=== PATIENT | male | born 2000 | race Caucasian/White ===

== ENCOUNTER 2021-02-17 10:23 | Emergency (ER) | payer MEDICAID, SELFPAY ==
[2021-02-17 10:40] VITALS: BP 113/62; PULSE 52; RESP 16; TEMP 36.6; O2SAT 99; BMI 26.6
--- NOTE | 2021-02-17 10:47 | ED.EAR ---
HPI - Ear Problem General Chief complaint: Ear Problems Stated complaint: ear pain Time Seen by Provider: 02/17/21 10:46 Source: patient Mode of arrival: ambulatory History of Present Illness HPI Narrative: 20-year-old male with a past medical history of a past medical history of ruptured TM presenting to the ED complaining of ruptured right ear drum x2 days with bleeding s/p cleaning ear with Q-tip. Believes he went to deep. Reports associated pain and decreased hearing. Denies fever, chills, pus drainage, sore throat MD Complaint: ear pain and decreased hearing Location: right ear Related Data Previous Rx's Medication Instructions Recorded amoxicillin-pot clavulanate 1 tab PO Q12H 7 Days #14 tab 02/17/21 [Augmentin] Allergies Allergy/AdvReac Type Severity Reaction Status Date / Time No Known Allergies Allergy Unverified 04/16/20 16:48 [No Known Allergies*] Review of Systems Review of Systems: Constitutional: No Fever, No Chills ENT/Mouth: + Ear Pain, +Bleeding from ear, +Decreased hearing, No Nasal Congestion, No sore throat, No Swallowing Difficulty Cardiovascular: No Chest Pain, No SOB Respiratory: No Cough, No Sputum Gastrointestinal: No Nausea, No Vomiting Skin: No Skin Lesions, No rash PMFSH Past Medical History Attestation statement: The following information was validated with the patient. Medical History (Updated 02/17/21 @ 10:51 by DANIEL Grajeda) Ruptured eardrum Surgical History (Updated 02/17/21 @ 10:43 by Candy Weber) Hx of tonsillectomy Physical Exam Vital Signs: Vital Signs: Last Vital Signs Temp 97.9 F 02/17/21 10:40 Pulse 52 02/17/21 10:40 Resp 16 02/17/21 10:40 BP 113/62 02/17/21 10:40 Pulse Ox 99 02/17/21 10:40 Body Mass Index 26.6 Const: General: cooperative, healthy appearing and no acute distress Orientation/consciousness: patient oriented x3 Limitations: no limitations HENMT: Other: + right ear canal with dry blood, swollen Head: Yes normal to inspection Ears: TM normal on the left, mastoids normal, no periauricular adenopathy and TM abnormal erythematous and with loss of landmarks on the right General nose exam: Normal external nose present Face and sinus: Yes normal facial exam Mouth: Normal oral and palatal mucosa present Throat: Yes posterior oropharynx normal, Yes tonsils normal, Yes uvula midline and No uvular edema Eyes: General: appearance normal, both eyes and all related structures EOM: EOMs intact bilaterally Neck: Neck: Yes normal visual inspection and Yes no lymphadenopathy Resp: Effort & Inspection: normal respiratory effort and no respiratory distress Cardio: Rate: regular rate GI: Inspection: Yes normal to inspection Skin: Rashes: no rashes Wounds: no wounds Neuro: General: patient oriented x3 Gait exam (Neuro): Normal gait present Extrem: General: Yes normal to inspection MDM - Ear MDM Narrative Medical decision making narrative: 20-year-old male with a past medical history of a past medical history of ruptured TM presenting to the ED complaining of ruptured right ear drum x2 days with bleeding s/p cleaning ear with Q-tip. On exam vital signs stable, exam consistent with otitis media with ruptured TM, dry blood in right ear canal. Mastoids WNL Medical Records Attestation: I reviewed the patient's medical records. Discharge Plan Discharge Clinical Impression: Otitis media Patient Disposition: Elopement Instructions: Ear Infection (ED) Additional Instructions: You have an inner ear infection, Augmentin as antibiotic, please take as prescribed It is important for you to follow-up with her primary care doctor, you may also follow-up with an Ear Nose Throat specialist as needed If her symptoms persist or worsen, you have continued drainage from a here, continued hearing loss, develops fever please return to the ED Prescriptions: New amoxicillin-pot clavulanate [Augmentin] 875-125 mg tablet 1 tab PO Q12H 7 Days Qty: 14 RF: 0 Referrals: Physician,Unknown [Primary Care Provider] - 3 days David Boone [Physician] - 1 week (as needed)
== END 2021-02-17 11:16 | disposition left against medical advice (07) ==
LOC: HO.ED 11:15
PROVIDERS: Emergency Provider Emergency Medicine
DX: H66.91 Otitis media, unspecified, right ear (principal)
CPT/HCPCS: 99283

== ENCOUNTER 2021-05-04 23:02 | Emergency (ER) | payer MEDICAID, SELFPAY ==
[2021-05-04 23:41] VITALS: BP 123/58; PULSE 80; RESP 14; TEMP 36.8; O2SAT 99; BMI 26.6
--- NOTE | 2021-05-05 01:54 | ED.GENADULT ---
HPI - General Adult General Chief complaint: Extremity Injury, Lower Stated complaint: toe inj Time Seen by Provider: 05/05/21 01:42 Source: patient Mode of arrival: ambulatory Limitations: no limitations History of Present Illness HPI narrative: 20-year-old male who presents emergency department for evaluation of a laceration to his left 5th toe. He states that he was getting out of the shower when he caught his toe on a lip causing him to tear the skin over his toe. States that he blood profusely initially but with an was able to control the bleeding with pressure. The patient also states that he was working outside approximately 4-5 days ago and now has a rash on his arms and legs, the rash is pruritic. He has been taking Benadryl with some improvement of the pruritus but no improvement of the rash. He denied fever, chills, chest pain, shortness of breath, nausea vomiting, abdominal pain. He states his tetanus status is up today. Related Data Previous Rx's Medication Instructions Recorded amoxicillin 875 mg-potassium 1 tab PO Q12H 7 Days #14 tab 02/17/21 clavulanate 125 mg tablet (Augmentin) prednisone 20 mg tablet 40 mg PO DAILY 7 Days #14 tab 05/05/21 Allergies Allergy/AdvReac Type Severity Reaction Status Date / Time No Known Allergies Allergy Unverified 04/16/20 16:48 [No Known Allergies*] Review of Systems Review of Systems: Yes all other systems are reviewed and are negative [facility] Past Medical History [facility] Narrative: Past medical history: None. Past surgical history: None. Social history: He denies tobacco, alcohol and drug use. Medical History (Updated 05/05/21 @ 02:10 by Darin Lemus MD) Ruptured eardrum Surgical History (Updated 02/17/21 @ 10:43 by Candy Weber) Hx of tonsillectomy Social History Social History Advance Directives: No Advance Directives Information Provided: Yes Physical Exam Vital Signs: Vital Signs: Last Vital Signs Temp 98.2 F 05/04/21 23:41 Pulse 80 05/04/21 23:41 Resp 14 05/04/21 23:41 BP 123/58 L 05/04/21 23:41 Pulse Ox 99 05/04/21 23:41 Body Mass Index 26.6 Const: Other: Very pleasant and cooperative male patient, does not appear to be in distress, answers all questions appropriately HENMT: Head: Yes normal to inspection General nose exam: Normal external nose present Face and sinus: Yes normal facial exam Eyes: General: appearance normal, both eyes and all related structures Resp: Effort & Inspection: normal respiratory effort Skin: Other: Diffuse rash consistent with poison carlos Extrem: Other: Patient has a 1.0 cm flap-like laceration over the 5th toe of the left foot, there is no significant bleeding, the skin of the flap laceration is very thin, extremities neurovascular intact Course Course Course Narrative: 20-year-old male who presents emergency department for evaluation of flap laceration to his left 5th toe and rash on his upper and lower extremities consistent with poison carlos. Patient's laceration was repaired with skin glue. The patient was started on prednisone 40 mg once a day for 7 days for is poison carlos, was given a dose here in the emergency department. Home. Procedures Laceration Left 5th toe laceration: Site: lower extremity (Left 5th toe) Side (If applicable): left Size (cm): 1.0 Description: flap (Thin layer) Depth: simple, single layer Pre-repair: wound explored Skin layer closed with: other (Skin glue) Discharge Plan Discharge Clinical Impression: Glued skin wound, Allergic dermatitis due to poison carlos Laceration of toe Qualifiers: Encounter type: initial encounter Toe: lesser toe Damage to nail status: without damage Foreign body presence: without foreign body Laterality: left Qualified Code(s): S91.115A - Laceration without foreign body of left lesser toe(s) without damage to nail, initial encounter Patient Disposition: Home, Self-Care Prescriptions: New prednisone 20 mg tablet 40 mg PO DAILY 7 Days Qty: 14 RF: 0 No Action amoxicillin-pot clavulanate [Augmentin] 875-125 mg tablet 1 tab PO Q12H 7 Days Qty: 14 RF: 0
[2021-05-05] MEDS: predniSONE 20 MG TABLET 40 MG PO (02:03)
== END 2021-05-05 02:18 | disposition home or self-care (01) ==
PROVIDERS: Emergency Provider Emergency Medicine Emergency Medical Services
DX: S91.115A Laceration without foreign body of left lesser toe(s) without damage to nail, initial encounter (principal); M79.672 Pain in left foot; W26.9XXA Contact with unspecified sharp object(s), initial encounter; Y93.E1 Activity, personal bathing and showering; Y92.002 Bathroom of unspecified non-institutional (private) residence as the place of occurrence of the external cause; Y99.9 Unspecified external cause status; Z79.899 Other long term (current) drug therapy
CPT/HCPCS: 12001; 99283

== ENCOUNTER 2021-06-09 08:43 | Emergency (ER) | payer OTHER, MEDICAID, SELFPAY ==
[2021-06-09 09:00] VITALS: BP 124/68; PULSE 78; RESP 16; TEMP 36.9; O2SAT 100; BMI 26.6
[2021-06-09 09:09] VITALS: BP 160/73; PULSE 76; RESP 14; TEMP 36.2; O2SAT 99
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
== END 2021-06-09 10:00 | disposition home or self-care (01) ==
PROVIDERS: Emergency Provider Emergency Medicine; PCP Nurse Practitioner Family
DX: S13.4XXA Sprain of ligaments of cervical spine, initial encounter (principal); M79.10 Myalgia, unspecified site; V43.52XA Car driver injured in collision with other type car in traffic accident, initial encounter; Y93.89 Activity, other specified; Y92.410 Unspecified street and highway as the place of occurrence of the external cause; Y99.9 Unspecified external cause status
CPT/HCPCS: 99283; 99285

== ENCOUNTER 2021-06-13 09:15 | Emergency (ER) | payer MEDICAID, SELFPAY ==
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
[2021-06-13 09:21] VITALS: BP 147/78; PULSE 74; RESP 22; TEMP 37.2; O2SAT 99
[2021-06-13 09:33] VITALS: BP 147/78; PULSE 74; RESP 18; TEMP 37.2; O2SAT 98; BMI 25.8
[2021-06-13] MEDS: Acetaminophen 325 MG TABLET 975 MG PO (09:54)
[2021-06-13 10:40] VITALS: RESP 18
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
== END 2021-06-13 11:32 | disposition home or self-care (01) ==
PROVIDERS: Emergency Provider Emergency Medicine; PCP Nurse Practitioner Family
DX: S39.012A Strain of muscle, fascia and tendon of lower back, initial encounter (principal); S46.912A Strain of unspecified muscle, fascia and tendon at shoulder and upper arm level, left arm, initial encounter; M54.6 Pain in thoracic spine; V43.52XA Car driver injured in collision with other type car in traffic accident, initial encounter; Y93.9 Activity, unspecified; Y92.411 Interstate highway as the place of occurrence of the external cause; Y99.9 Unspecified external cause status
CPT/HCPCS: 72072; 72100; 73060; 99283

== ENCOUNTER 2021-06-23 14:57 | Emergency (ER) | payer OTHER, SELFPAY ==
[2021-06-23 15:19] VITALS: BP 131/79; PULSE 66; RESP 18; TEMP 37; O2SAT 99; BMI 41.0
[2021-06-23] MEDS: Lidocaine HCl 1 % MPF 5 ML VIAL SUBCUT ×2 (16:23→16:24)
[2021-06-23] MEDS: cephALEXin 500 MG CAPSULE PO (16:23)
[2021-06-23] MEDS: Diphth,Pertus(ACell),Tet Adult 0.5 ML SYRINGE IM (16:24)
--- NOTE | 2021-06-23 17:02 | ED_ITS ---
HPI - Wound/Laceration General Chief Complaint: Wound/Laceration Stated Complaint: thumb lac Time Seen by Provider: 06/23/21 15:54 Source: patient Mode of arrival: ambulatory Limitations: no limitations History of Present Illness HPI narrative: 20-year-old male presenting to the ED with complaints of a laceration to his right hand that occurred at work prior to arrival while he was sharpening the night. He denies any bony tenderness any thoughts of foreign body any paresthesias or any other symptoms complaints or concerns at this time. Onset (ago): minute(s) (Prior to arrival) Extremity Location: right: hand (thumb ) Place: work Patient tetanus UTD: No Context: accidental Associated symptoms: pain Treatments prior to arrival: bandage Related Data Previous Rx's Medication Instructions Recorded amoxicillin 875 mg-potassium 1 tab PO Q12H 7 Days #14 tab 02/17/21 clavulanate 125 mg tablet (Augmentin) prednisone 20 mg tablet 40 mg PO DAILY 7 Days #14 tab 05/05/21 cyclobenzaprine 10 mg tablet 10 mg PO TID #10 tab 06/09/21 naproxen 500 mg tablet (Naprosyn) 500 mg PO BID #20 tab 06/09/21 diazepam 10 mg tablet (Valium) 10 mg PO TID PRN #14 tab 06/13/21 ibuprofen 800 mg tablet 800 mg PO Q8H PRN #14 tab 06/13/21 oxycodone-acetaminophen 5 mg-325 1 tab PO Q6H PRN #10 tab 06/13/21 mg tablet (Percocet) acetaminophen 500 mg capsule 1,000 mg PO QID PRN #14 cap 06/23/21 cephalexin 500 mg capsule 500 mg PO Q6H 10 Days #40 cap 06/23/21 Allergies Allergy/AdvReac Type Severity Reaction Status Date / Time No Known Allergies Allergy Verified 06/13/21 09:36 [No Known Allergies*] Review of Systems Review of Systems: Constitutional : No Fever, No Chills, Cardiovascular : No Chest Pain, No SOB Respiratory : No Dyspnea Gastrointestinal : No abdominal pain Musculoskeletal : No Joint Swelling Skin : positive skin laceration, No Foreign bodies, No rash, No surrounding erythema Neuro : No Weakness, No Numbness/tingling Psych : No SI/HI/thoughts of self injury Yes all other systems are reviewed and are negative PMFSH Past Medical History Attestation statement: The following information was validated with the patient. Medical History Ruptured eardrum Surgical History Hx of tonsillectomy Social History Social History Advance Directives: No Advance Directives Information Provided: No Physical Exam Vital Signs: Vital Signs: Last Vital Signs Temp 98.6 F 06/23/21 15:19 Pulse 66 06/23/21 15:19 Resp 18 06/23/21 15:19 BP 131/79 06/23/21 15:19 Pulse Ox 99 06/23/21 15:19 Body Mass Index 41.0 vital signs have been reviewed as normal and appeared to be correct. Blood pressure normal Heart rate normal. Respiration rate normal. Temperature normal. Oxygen saturation normal. Appearance: Alert. Oriented X3. No acute distress. Head: Normal external exam. Normocephalic. Atraumatic. Eyes: PERRLA. EOMI. Conjunctiva and sclera normal. Eyelids normal. ENT: Pharynx normal. Uvula midline. Moist mucous membranes. Neck: Normal inspection. Neck supple. FROM. CVS: Normal heart rate and rhythm. Respiratory: No respiratory distress. Painless inspiration. Skin: Skin warm and dry. Normal skin color. Normal skin turgor. No rashes/lesions noted. Extremities: To right hand some at the pad of the thumb patient has the 1 cm intermediate laceration no active bleeding or foreign bodies or bony tenderness or obvious ligamentous or tendon injury. Patient has full range of motion of the right thumb. Otherwise all Extremities exhibit normal range of motion and nontender. Neuro: Oriented X 3. No motor deficit. No sensory deficit. Reflexes normal. Normal steady gait. No focal neuro deficits noted. Vascular: + radial pulses/+ 2 distal pedal pulses/+2 dorsalis pedis b/l. Normal cap refill. No cyanosis noted to upper extremity nails and lower extremity toes nails. Course Course Course Narrative: 20-year-old male presenting to the ED with complaints of a laceration to his right hand that occurred at work prior to arrival while he was sharpening the night. He denies any bony tenderness any thoughts of foreign body any paresthesias or any other symptoms complaints or concerns at this time. Patient now status post laceration repair with 5 sutures placed. Patient tolerated procedure well. Patient's tetanus was updated as he reported he was not up-to-date. Will DC home with Keflex and instructions to return if any new or worsening symptoms to follow up with [facility] and to return in 10 days for suture removal Patient understands agrees with this plan. MDM - Wound/Laceration Medical Records Attestation: I reviewed the patient's medical records. Procedures Laceration Laceration 1: Site: hand (thumb ) Side (If applicable): right Size (cm): 1 Description: linear Depth: simple, single layer Local Anesthetic: lidocaine 1% Amount of anesthesia used (mL): 6 Pre-repair: wound explored, irrigated extensively and deep structures intact Skin layer closed with: nylon Size (cm): 5-0 Number of sutures: 5 Technique: simple, interrupted Discharge Plan Discharge Clinical Impression: Laceration, Work related injury Patient Disposition: Home, Self-Care Instructions: Finger Laceration (ED), Return to Work Instructions (ED) Prescriptions: New cephalexin 500 mg capsule 500 mg PO Q6H 10 Days Qty: 40 RF: 0 acetaminophen 500 mg capsule 1,000 mg PO QID PRN (Reason: fever or pain) Qty: 14 RF: 0 No Action amoxicillin-pot clavulanate [Augmentin] 875-125 mg tablet 1 tab PO Q12H 7 Days Qty: 14 RF: 0 cyclobenzaprine 10 mg tablet 10 mg PO TID Qty: 10 RF: 0 naproxen [Naprosyn] 500 mg tablet 500 mg PO BID Qty: 20 RF: 0 prednisone 20 mg tablet 40 mg PO DAILY 7 Days Qty: 14 RF: 0 ibuprofen 800 mg tablet 800 mg PO Q8H PRN (Reason: pain) Qty: 14 RF: 0 oxycodone-acetaminophen [Percocet] 5-325 mg tablet 1 tab PO Q6H PRN (Reason: pain) Qty: 10 RF: 0 diazepam [Valium] 10 mg tablet 10 mg PO TID PRN (Reason: muscle spasm) Qty: 14 RF: 0 Referrals: [facility] [Provider Group] - 2 days Hoda Friedman NP [Primary Care Provider] - 2 days Ayesha Hendrix PA [Emergency Midlevel Provider] - 10 days (For suture removal) Stand Alone Forms: Work/School Release Print Language: Croatian
== END 2021-06-23 17:42 | disposition home or self-care (01) ==
PROVIDERS: Emergency Provider Emergency Medicine; PCP Nurse Practitioner Family
DX: S61.011A Laceration without foreign body of right thumb without damage to nail, initial encounter (principal); S60.511A Abrasion of right hand, initial encounter; W26.9XXA Contact with unspecified sharp object(s), initial encounter; Y93.9 Activity, unspecified; Y92.9 Unspecified place or not applicable; Y99.0 Civilian activity done for income or pay; Z79.899 Other long term (current) drug therapy
CPT/HCPCS: 12001; 90471; 90715; 99283; 99284

== ENCOUNTER 2021-06-27 09:24 | Emergency (ER) | payer OTHER, MEDICAID, SELFPAY | END 2021-06-27 09:40 | disposition left against medical advice (07) | PROVIDERS: Emergency Provider Emergency Medicine; PCP Nurse Practitioner Family | DX: Z04.2 Encounter for examination and observation following work accident (principal); Z48.02 Encounter for removal of sutures ==

== ENCOUNTER 2021-06-27 21:28 | Emergency (ER) | payer OTHER, MEDICAID, SELFPAY ==
[2021-06-27 22:30] VITALS: BP 130/64; PULSE 77; RESP 18; TEMP 37; O2SAT 98; BMI 25.8
--- NOTE | 2021-06-27 23:02 | ED.GENADULT ---
HPI - General Adult General Chief complaint: General Medical Stated complaint: removal of stitches Source: patient Mode of arrival: ambulatory Limitations: no limitations History of Present Illness HPI narrative: 20-year-old male presents for suture removal to the right thumb. Onset (ago): day(s) (5) Related Data Previous Rx's Medication Instructions Recorded amoxicillin 875 mg-potassium 1 tab PO Q12H 7 Days #14 tab 02/17/21 clavulanate 125 mg tablet (Augmentin) prednisone 20 mg tablet 40 mg PO DAILY 7 Days #14 tab 05/05/21 cyclobenzaprine 10 mg tablet 10 mg PO TID #10 tab 06/09/21 naproxen 500 mg tablet (Naprosyn) 500 mg PO BID #20 tab 06/09/21 diazepam 10 mg tablet (Valium) 10 mg PO TID PRN #14 tab 06/13/21 ibuprofen 800 mg tablet 800 mg PO Q8H PRN #14 tab 06/13/21 oxycodone-acetaminophen 5 mg-325 1 tab PO Q6H PRN #10 tab 06/13/21 mg tablet (Percocet) acetaminophen 500 mg capsule 1,000 mg PO QID PRN #14 cap 06/23/21 cephalexin 500 mg capsule 500 mg PO Q6H 10 Days #40 cap 06/23/21 Allergies Allergy/AdvReac Type Severity Reaction Status Date / Time No Known Allergies Allergy Verified 06/27/21 22:30 [No Known Allergies*] Review of Systems Review of Systems: Constitutional: No Fever, No Chills ENT/Mouth: No Ear Pain, No Hoarseness, No sore throat Eyes: No Eye Pain, No Swelling, No Redness, No Foreign Body Cardiovascular: No Chest Pain, No SOB Respiratory: No Cough, No Dyspnea Gastrointestinal: No Nausea, No Vomiting, No Diarrhea, No abdominal Pain Genitourinary: No Dysuria, No Hematuria Musculoskeletal: no joint pain, No Myalgias, No Joint Swelling Skin: positive thumb laceration, No rash Neuro: No Weakness, No Numbness, No Paresthesias, No Loss of Consciousness, No Dizziness, No Headache Psych: No Anxiety/Panic, No Depression Heme/Lymph: no easy bruising, no Lymphadenopathy Endocrine: No Polyuria, No Polydipsia Yes all other systems are reviewed and are negative [facility] Past Medical History Attestation statement: The following information was validated with the patient. Source: old records reviewed Medical History Ruptured eardrum Surgical History Hx of tonsillectomy Social History Social History Advance Directives: No Physical Exam Vital Signs: Vital Signs: Last Vital Signs Temp 98.6 F 06/27/21 22:30 Pulse 77 06/27/21 22:30 Resp 18 06/27/21 22:30 BP 130/64 06/27/21 22:30 Pulse Ox 98 06/27/21 22:30 Body Mass Index 25.8 Appearance: Alert. Oriented X3. No acute distress. Eyes: Pupils equal, round and reactive to light. ENT: Pharynx normal. Neck: Normal inspection. Neck supple. CVS: Normal heart rate and rhythm. Pulses normal. Respiratory: No respiratory distress. Breath sounds normal. Abdomen: Soft and nontender. Skin: Skin warm and dry. Normal skin color. Normal skin turgor. thumb laceration well approximated, healing. No indication of infection or purulent drainage. Sutures removed without difficulty. Extremities: No lower extremity edema. Gait well-balanced well coordinated. Neuro: No motor deficit. No sensory deficit. Course Course Course Narrative: 20-year-old male presents for suture removal. Five sutures removed from that of his thumb on the left side. No purulent drainage, well approximated, no indication of infection. Full range of motion and brisk capillary refill noted. Patient verbalized understanding of and agrees plan of care discharge home. Discharge Plan Discharge Clinical Impression: Visit for suture removal Patient Disposition: Home, Self-Care Instructions: Stitches Removal (ED) Additional Instructions: please follow-up with [facility] if needed. Thank you for choosing this emergency department for evaluation. Please follow-up with primary care physician as needed. Return to the emergency department for any new, concerning, or worsening symptoms. Prescriptions: No Action amoxicillin-pot clavulanate [Augmentin] 875-125 mg tablet 1 tab PO Q12H 7 Days Qty: 14 RF: 0 cyclobenzaprine 10 mg tablet 10 mg PO TID Qty: 10 RF: 0 naproxen [Naprosyn] 500 mg tablet 500 mg PO BID Qty: 20 RF: 0 cephalexin 500 mg capsule 500 mg PO Q6H 10 Days Qty: 40 RF: 0 acetaminophen 500 mg capsule 1,000 mg PO QID PRN (Reason: fever or pain) Qty: 14 RF: 0 prednisone 20 mg tablet 40 mg PO DAILY 7 Days Qty: 14 RF: 0 ibuprofen 800 mg tablet 800 mg PO Q8H PRN (Reason: pain) Qty: 14 RF: 0 oxycodone-acetaminophen [Percocet] 5-325 mg tablet 1 tab PO Q6H PRN (Reason: pain) Qty: 10 RF: 0 diazepam [Valium] 10 mg tablet 10 mg PO TID PRN (Reason: muscle spasm) Qty: 14 RF: 0 Interventions: ED Discharge Assessment Last Done: 06/27/21 23:32 Discharge Date/Time: 06/27/21 23:17
== END 2021-06-27 23:17 | disposition home or self-care (01) ==
PROVIDERS: Emergency Provider Nurse Practitioner Family; PCP Nurse Practitioner Family
DX: Z04.2 Encounter for examination and observation following work accident (principal); Z48.02 Encounter for removal of sutures; S61.011D Laceration without foreign body of right thumb without damage to nail, subsequent encounter; W45.8XXD Other foreign body or object entering through skin, subsequent encounter
CPT/HCPCS: 99283

== ENCOUNTER 2021-08-13 05:55 | Emergency (ER) | payer MEDICAID, SELFPAY ==
[2021-08-13 06:05] VITALS: BP 140/74; PULSE 87; RESP 16; TEMP 36.9; O2SAT 98; BMI 26.6
--- NOTE | 2021-08-13 08:07 | PC.NURSE ---
ATTEMPTED TO CALL PATIENT INTO ED X 3. NO ANSWER IN WAITING ROOM. REGISTRATION STATES THAT PATIENT TOLD HER HE WAS GOING OUT TO SMOKE BUT NEVER RETURNED
== END 2021-08-13 08:08 | disposition left against medical advice (07) ==
PROVIDERS: Emergency Provider Emergency Medicine
DX: F41.9 Anxiety disorder, unspecified (principal); M25.562 Pain in left knee; M25.561 Pain in right knee
CPT/HCPCS: 99281; 99282

== ENCOUNTER 2022-03-30 18:24 | Emergency (ER) | payer MEDICAID, SELFPAY ==
[2022-03-30 18:36] VITALS: BP 116/73; PULSE 86; RESP 18; TEMP 36.9; O2SAT 96; BMI 29.0
--- NOTE | 2022-03-30 20:19 | ED_ITS ---
HPI - General Adult General Chief complaint: Skin/Abscess/Foreign Body Stated complaint: rash over body Time Seen by Provider: 03/30/22 20:19 Source: patient Mode of arrival: ambulatory Limitations: no limitations History of Present Illness HPI narrative: Patient is a 21 year old male presenting to the emergency department today with poison camila. Patient states that he got into some poison camila a few days ago and it's getting worse. Patient states that it is on his arms and legs, including the folds of his inner elbows and knees. Patient denies any dizziness, lightheadedness, abdominal pain, nausea, vomiting, fever, chills, blurry vision, double vision, loss of vision, chest pain, difficulty breathing, shortness of breath, back pain, night sweats, pain with urination, increased urinary frequency, increased urinary urgency, blood in his urine or stool, syncope or a near syncopal episode, recent trauma or falls, bowel incontinence, bladder incontinence, bowel retention, bladder retention, or any other complaints at this time. Onset (ago): day(s) (2) Location: left, right, upper extremity and lower extremity Severity: mild Severity scale (1-10): 2 Relieving factors: none Exacerbating factors: none Associated symptoms: rash Treatments prior to arrival: none Related Data Previous Rx's Medication Instructions Recorded amoxicillin 875 mg-potassium 1 tab PO Q12H 7 days #14 tabs 02/17/21 clavulanate 125 mg tablet (Augmentin) prednisone 20 mg tablet 40 mg PO DAILY 7 days #14 tabs 05/05/21 cyclobenzaprine 10 mg tablet 10 mg PO TID #10 tabs 06/09/21 naproxen 500 mg tablet (Naprosyn) 500 mg PO BID #20 tabs 06/09/21 diazepam 10 mg tablet (Valium) 10 mg PO TID PRN muscle spasm #14 06/13/21 tabs ibuprofen 800 mg tablet 800 mg PO Q8H PRN pain #14 tabs 06/13/21 oxycodone-acetaminophen 5 mg-325 1 tab PO Q6H PRN pain #10 tabs 06/13/21 mg tablet (Percocet) acetaminophen 500 mg capsule 1,000 mg PO QID PRN fever or pain 06/23/21 #14 caps cephalexin 500 mg capsule 500 mg PO Q6H 10 days #40 caps 06/23/21 fluconazole 150 mg tablet 150 mg PO Q3D 2 doses #2 tabs 03/30/22 (Diflucan) prednisone 20 mg tablet 20 mg PO DAILY 12 days #26 tabs 03/30/22 Allergies Allergy/AdvReac Type Severity Reaction Status Date / Time No Known Allergies Allergy Verified 06/27/21 22:30 [No Known Allergies*] Review of Systems Constitutional: Constitutional: Reports no additional constitutional complaints, Denies chills, Denies fever(s) and Denies night sweats Eyes: Eyes: Reports no additional eye complaints, Denies blurry vision, Denies change in vision, Denies diplopia, Denies eye discharge, Denies loss of vision and Denies eye pain ENT: Denies dizziness Cardiovascular: Cardiovascular: Reports no additional cardiovascular complaints, Denies chest pain, Denies lightheadedness, Denies Loss of Consciousness and Denies dyspnea Respiratory: Respiratory: Reports no additional respiratory complaints and Denies dyspnea Gastrointestinal: Gastrointestinal: Reports no additional gastrointestinal complaints, Denies abdominal pain, Denies melena, Denies hematochezia, Denies change in bowel habits and Denies change in stool character Genitourinary: Genitourinary: Reports no additional male genitourinary complaints, Denies hematuria, Denies oliguria, Denies difficulty urinating, Denies dysuria, Denies urinary frequency, Denies urinary hesitancy, Denies urinary incontinence and Denies urinary urgency Musculoskeletal: Musculoskeletal: Reports no additional musculoskeletal complaints, Denies numbness and Denies tingling Integumentary/Breasts: Comments: rash to both arms and legs Neurologic: Denies dizziness, Denies loss of vision, Denies numbness and Denies tingling Psychiatric: Psychiatric: Reports no additional psychiatric complaints Endocrine: Endocrine: Reports no additional endocrine complaints Hematologic/Lymphatic: Hematologic/Lymphatic: Reports no additional hematologic/lymphatic complaints Allergic/Immunologic: Allergic/Immunologic: Reports no additional allergic/immunologic complaints PMFSH Past Medical History Attestation statement: The following information was validated with the patient. Source: old records reviewed Medical History Ruptured eardrum Surgical History Hx of tonsillectomy Social History Social History Advance Directives: No Advance Directives Information Provided: No Physical Exam ED Vital Signs: Vital Signs - 24 hr 03/30/22 18:36 Temperature 98.4 F Pulse Rate 86 Respiratory Rate 18 Blood Pressure 116/73 Pulse Oximetry 96 Oxygen Delivery Method Room Air BMI result Body Mass Index 29.0 Const General: cooperative, no acute distress, alert and awake Nutritional Appearance: well nourished Orientation/consciousness: patient oriented x3 Limitations: no limitations HENMT Head: Yes normal to inspection and Yes atraumatic Ears: hearing grossly normal bilaterally and external ears normal General nose exam: Normal external nose present, no nasal discharge noted and no epistaxis Face and sinus: Yes normal facial exam, No abrasion and No laceration Mouth: Normal oral and palatal mucosa present, no drooling and no muffled voice Eyes General: appearance normal, both eyes and all related structures Periorbital: periorbital findings normal Eyelids: Yes eyelids normal Conjunctivae: conjunctivae normal Pupils: Equal, round and reactive pupils present EOM: EOMs intact bilaterally Neck Neck: Yes normal visual inspection, Yes full ROM and Yes no lymphadenopathy Chest Chest palpation & inspection: normal inspection of the chest Resp Effort & Inspection: normal respiratory effort and able to speak in complete sentences Auscultation: clear to auscultation bilaterally Cardio Rate: regular rate Rhythm: regular rhythm GI Inspection: Yes normal to inspection Skin Other: erythematous rash to the insides of both elbows and knees with random spots throughout both limbs Neuro General: patient oriented x3 and moves all extremities Cranial nerves: Yes Equal, round and reactive pupils present Cognition (Neuro): normal cognition Motor exam (neuro): 5/5 motor strength present throughout Sensory Exam: Normal double simultaneous stimulation for sensation Coordination: [id number] test normal Extrem General: Yes normal to inspection, Yes full ROM and Yes capillary refill normal Psych Appearance: grossly normal Mental Status: mental status grossly normal Affect: normal affect Attitude: cooperative Thought process: Normal thought process present Thought content: Normal thought content present Insight: Good insight present (Psych) Medical Decision Making MDM Narrative Medical decision making narrative: Patient is a 21 year old male presenting to the emergency department today with poison camila. Patient's physical exam showed a rash consistent with poison camila however, the patient did have heavy distribution in the folds of his elbows and knees, concerning for a superimposed Candidiasis infection. I explained my physical exam findings to the patient. I answered all questions asked by the patient. I stressed the importance of the patient taking his medication as prescribed. I stressed the importance of the patient following up with his primary care provider. I stressed the importance of the patient returning to the emergency department immediately if his symptoms were to worsen or if he were to develop any dizziness, shortness of breath, difficulty breathing, chest pain, blurry vision, loss of vision, nausea, vomiting, abdominal pain, fever, chills, back pain, or any other complaints. Patient verbalized agreement and understanding with this treatment plan and discharge. Differential Diagnosis Differential Diagnosis: poision camila, yeast infect Medical Records Medical records reviewed: Yes I reviewed the patient's medical records. Discharge Plan Discharge Clinical Impression: Poison camila Patient Disposition: Home, Self-Care Instructions: Poison Camila (ED) Additional Instructions: Follow up with your primary care provider. Return to the emergency department immediately if your symptoms worsen or if you develop any dizziness, shortness of breath, difficulty breathing, chest pain, blurry vision, loss of vision, nausea, vomiting, abdominal pain, fever, chills, back pain, or any other complaints. Prescriptions: New prednisone 20 mg tablet 20 mg PO DAILY 12 Days Qty: 26 0RF Rx Instructions: Take 3 tablets for 5 days THEN; Take 2 tablets for 4 days THEN; Take 1 tablet for 3 days fluconazole [Diflucan] 150 mg tablet 150 mg PO Q3D Qty: 2 0RF No Action amoxicillin-pot clavulanate [Augmentin] 875-125 mg tablet 1 tab PO Q12H 7 Days Qty: 14 0RF cyclobenzaprine 10 mg tablet 10 mg PO TID Qty: 10 0RF naproxen [Naprosyn] 500 mg tablet 500 mg PO BID Qty: 20 0RF cephalexin 500 mg capsule 500 mg PO Q6H 10 Days Qty: 40 0RF acetaminophen 500 mg capsule 1,000 mg PO QID PRN (Reason: fever or pain) Qty: 14 0RF prednisone 20 mg tablet 40 mg PO DAILY 7 Days Qty: 14 0RF ibuprofen 800 mg tablet 800 mg PO Q8H PRN (Reason: pain) Qty: 14 0RF oxycodone-acetaminophen [Percocet] 5-325 mg tablet 1 tab PO Q6H PRN (Reason: pain) Qty: 10 0RF diazepam [Valium] 10 mg tablet 10 mg PO TID PRN (Reason: muscle spasm) Qty: 14 0RF [place]: [facility] [place] [facility] [place] (Call to establish and follow up with a primary care provider. If you already have a primary care provider, please follow up with them. ) [facility] [place] [facility] [place]Provider Group] (Call to establish and follow up with a primary care provider. If you already have a primary care provider, please follow up with them. ) [facility] [facility] [place]] (Call to establish and follow up with a primary care provider. If you already have a primary care provider, please follow up with them. ) Interventions: ED Discharge Assessment Last Done: 03/30/22 20:49 Print Language: Korean
== END 2022-03-30 20:49 | disposition home or self-care (01) ==
PROVIDERS: Emergency Provider Emergency Medicine
DX: L23.7 Allergic contact dermatitis due to plants, except food (principal); R21 Rash and other nonspecific skin eruption; Z79.899 Other long term (current) drug therapy
CPT/HCPCS: 99282; 99283

== ENCOUNTER 2022-04-23 14:47 | Emergency (ER) | payer MEDICAID, SELFPAY | END 2022-04-23 18:21 | disposition left against medical advice (07) | PROVIDERS: Emergency Provider Emergency Medicine | DX: R06.00 Dyspnea, unspecified (principal) ==

== ENCOUNTER 2022-05-01 06:26 | Emergency (ER) | payer MEDICAID, SELFPAY ==
--- NOTE | ~2022-05-01 | CT_ITS ---
EXAMINATION: CT ABDOMEN AND PELVIS WITH CONTRAST CLINICAL INFORMATION: Abdominal pain. COMPARISON: None TECHNIQUE: Multidetector volumetric images were obtained from the superior aspect of the liver through the pubic symphysis following administration 85 mL of Omnipaque 350 intravenous contrast. Sagittal and coronal reformatted images were obtained on the technologist's workstation. Oral contrast: No This CT examination was performed using dose optimization techniques as appropriate, variously including the following: *Automated exposure control *Adjustment of mA and/or kV according to patient size (this includes techniques or standardized protocols for targeted exams where dose is matched to indication/reason for exam; i.e. extremities or head) *Use of iterative reconstruction technique DLP: 403 mGy-cm FINDINGS: LUNG BASES: The visualized lung bases are unremarkable. LIVER, GALLBLADDER, AND BILIARY TREE: Unremarkable. PANCREAS: Unremarkable. SPLEEN: Unremarkable. ADRENAL GLANDS: Unremarkable. KIDNEYS AND URETERS: The kidneys are normal in size, shape, and attenuation. No hydronephrosis, hydroureter, or calculi seen. No perinephric stranding. BLADDER: Unremarkable. GASTROINTESTINAL TRACT: The stomach, small bowel and appendix are unremarkable. The colon and rectum are unremarkable. ABDOMINAL WALL: No significant hernia is appreciated. LYMPH NODES: No lymphadenopathy. VASCULAR: Unremarkable. PELVIC VISCERA: Unremarkable. OSSEOUS STRUCTURES: Unremarkable. CT/CT abdomen pelvis w IV con IMPRESSION: No acute intra-abdominal/pelvic abnormality.
[2022-05-01 06:47] VITALS: BP 125/80; PULSE 76; RESP 16; TEMP 38.1; O2SAT 96; BMI 28.1
[2022-05-01 06:51] VITALS: BP 120/74; PULSE 62; O2SAT 97
[2022-05-01 07:02] LABS: Hematocrit 43.5 % (42.0-52.0); Hemoglobin 14.8 g/dl (14.0-18.0); Mean Corpuscular Hemoglobin 26.5 pg (27.0-33.0); Mean Platelet Volume 9.8 fL (9.4-12.4); Platelet Count 399 X10*3/uL (160-400); Red Blood Count 5.58 X10*6/uL (4.60-5.80); Red Cell Distribution Width 13.2 % (11.0-16.0); White Blood Count 10.6 X10*3/uL (4.8-10.8)
[2022-05-01 07:20] LABS: Alanine Aminotransferase 19 U/L (0-40); Albumin Level 5.6 g/dL (3.5-5.0); Alkaline Phosphatase 123 U/L (39-117); Anion Gap 21 (12-20); Aspartate Amino Transferase 22 U/L (5-37); Bilirubin Total 0.6 mg/dL (0.0-1.0); Blood Urea Nitrogen 11 mg/dL (9-16); Carbon Dioxide 26 mmol/L (22-29); Chloride 101 mmol/L (96-108); Estimated Glomerular Filt Rate > 60; Glucose Random 108 mg/dL (60-115); Sodium 144 mmol/L (135-145); Total Protein 8.1 g/dL (6.5-8.0)
[2022-05-01 07:23] LABS: COVID-19 Test Negative (Negative)
[2022-05-01 09:22] VITALS: BP 153/84; PULSE 63; RESP 18; TEMP 36.8; O2SAT 100
--- NOTE | 2022-05-01 09:24 | ED_ITS ---
HPI - General Adult General Chief complaint: General Medical Stated complaint: N/V Time Seen by Provider: 05/01/22 09:22 History of Present Illness HPI narrative: 21-year-old male presents today with having nausea vomiting generalized malaise weakness. Patient has a history of methadone dependency. Last use was 1 week ago. The vomiting started today. Patient used marijuana prior to arrival. Denies any other recreational drug use. No fever no chills. No coughing or congestion or upper respiratory symptoms. Related Data Previous Rx's Medication Instructions Recorded amoxicillin 875 mg-potassium 1 tab PO Q12H 7 days #14 tabs 02/17/21 clavulanate 125 mg tablet (Augmentin) prednisone 20 mg tablet 40 mg PO DAILY 7 days #14 tabs 05/05/21 cyclobenzaprine 10 mg tablet 10 mg PO TID #10 tabs 06/09/21 naproxen 500 mg tablet (Naprosyn) 500 mg PO BID #20 tabs 06/09/21 diazepam 10 mg tablet (Valium) 10 mg PO TID PRN muscle spasm #14 06/13/21 tabs ibuprofen 800 mg tablet 800 mg PO Q8H PRN pain #14 tabs 06/13/21 oxycodone-acetaminophen 5 mg-325 1 tab PO Q6H PRN pain #10 tabs 06/13/21 mg tablet (Percocet) acetaminophen 500 mg capsule 1,000 mg PO QID PRN fever or pain 06/23/21 #14 caps cephalexin 500 mg capsule 500 mg PO Q6H 10 days #40 caps 06/23/21 fluconazole 150 mg tablet 150 mg PO Q3D 2 doses #2 tabs 03/30/22 (Diflucan) prednisone 20 mg tablet 20 mg PO DAILY 12 days #26 tabs 03/30/22 ondansetron 4 mg disintegrating 4 mg PO TID PRN nausea and 05/01/22 tablet vomiting 5 days #10 tabs Allergies Allergy/AdvReac Type Severity Reaction Status Date / Time No Known Allergies Allergy Verified 06/27/21 22:30 [No Known Allergies*] Review of Systems Review of Systems: Positive nausea vomiting Positive abdominal pain Yes all other systems are reviewed and are negative PMFSH Past Medical History Attestation statement: The following information was validated with the patient. Medical History Ruptured eardrum Surgical History Hx of tonsillectomy Social History Social History Alcohol intake: never Patient Tobacco Use Status: Current everyday Tobacco user Any prior treatment program specific to substance use: No Advance Directives: No Advance Directives Information Provided: No Physical Exam ED Vital Signs: Vital Signs - 24 hr 05/01/22 06:47 05/01/22 09:22 Temperature 100.5 F H 98.2 F Pulse Rate 76 63 Respiratory Rate 16 18 Blood Pressure 125/80 153/84 H Pulse Oximetry 96 100 Oxygen Delivery Method Room Air Room Air BMI result Body Mass Index 28.1 Appearance: Alert. Oriented X3. No acute distress. Eyes: Pupils equal, round and reactive to light. ENT: Pharynx normal. Neck: Normal inspection. Neck supple. No lymph nodes noted. No crepitus CVS: Normal heart rate and rhythm. Pulses normal. Normal S1 and S2 Respiratory: No respiratory distress. Breath sounds normal. No Wheezing. No rales Abdomen: Soft and nontender. No rigidity. No distention. good BS x4 Skin: Skin warm and dry. Normal skin color. Normal skin turgor. Extremities: No lower extremity edema. Neurovascular intact to all extremities. No Lacerations. No Rash Neuro: Oriented X 3. No motor deficit. No sensory deficit. Moving all e xtermities. No slurred speech Medical Decision Making Lab Data Result diagrams: 05/01/22 06:58 05/01/22 06:58 Labs: Lab Results 05/01/22 05/01/22 05/01/22 Range/Units 06:58 06:58 06:58 WBC 10.6 (4.8-10.8) X10*3/uL RBC 5.58 (4.60-5.80) X10*6/uL Hgb 14.8 (14.0-18.0) g/dl Hct 43.5 (42.0-52.0) % MCV 78.0 L (80.0-98.0) fL MCH 26.5 L (27.0-33.0) pg MCHC 34.0 (31.0-36.0) g/dl RDW 13.2 (11.0-16.0) % Plt Count 399 (160-400) X10*3/uL MPV 9.8 (9.4-12.4) fL Absolute Nucleated RBC 0.000 (0.0-0.012) X10*3/uL Nucleated RBC % (auto) 0.0 (0.0-0.2) /100WBC Sodium 144 (135-145) mmol/L Potassium 4.0 (3.3-5.1) mmol/L Chloride 101 (96-108) mmol/L Carbon Dioxide 26 (22-29) mmol/L Anion Gap 21 H (12-20) BUN 11 (9-16) mg/dL Creatinine 0.94 (0.5-1.4) mg/dL Estim Creat Clear Calc 130.0 Estimated GFR > 60 Random Glucose 108 (60-115) mg/dL Calcium 11.0 H (8.4-10.2) mg/dL Total Bilirubin 0.6 (0.0-1.0) mg/dL AST 22 (5-37) U/L ALT 19 (0-40) U/L Alkaline Phosphatase 123 H (39-117) U/L Total Protein 8.1 H (6.5-8.0) g/dL Albumin 5.6 H (3.5-5.0) g/dL COVID-19 (MELISSA) Negative (Negative) COVID-19 Clin Com See Note Discharge Plan Discharge Clinical Impression: Nausea & vomiting Patient Disposition: Home, Self-Care Instructions: Acute Nausea and Vomiting (ED) Prescriptions: New ondansetron 4 mg tablet,disintegrating 4 mg PO TID PRN (Reason: nausea and vomiting) 5 Days Qty: 10 0RF No Action amoxicillin-pot clavulanate [Augmentin] 875-125 mg tablet 1 tab PO Q12H 7 Days Qty: 14 0RF cyclobenzaprine 10 mg tablet 10 mg PO TID Qty: 10 0RF naproxen [Naprosyn] 500 mg tablet 500 mg PO BID Qty: 20 0RF cephalexin 500 mg capsule 500 mg PO Q6H 10 Days Qty: 40 0RF acetaminophen 500 mg capsule 1,000 mg PO QID PRN (Reason: fever or pain) Qty: 14 0RF prednisone 20 mg tablet 20 mg PO DAILY 12 Days Qty: 26 0RF Rx Instructions: Take 3 tablets for 5 days THEN; Take 2 tablets for 4 days THEN; Take 1 tablet for 3 days fluconazole [Diflucan] 150 mg tablet 150 mg PO Q3D Qty: 2 0RF prednisone 20 mg tablet 40 mg PO DAILY 7 Days Qty: 14 0RF ibuprofen 800 mg tablet 800 mg PO Q8H PRN (Reason: pain) Qty: 14 0RF oxycodone-acetaminophen [Percocet] 5-325 mg tablet 1 tab PO Q6H PRN (Reason: pain) Qty: 10 0RF diazepam [Valium] 10 mg tablet 10 mg PO TID PRN (Reason: muscle spasm) Qty: 14 0RF Referrals: Physician,Unknown J [Primary Care Provider] - 2 days
[2022-05-01] MEDS: ondansetron HCL 4 MG/2 ML VIAL IVPUSH ×2 (09:45→13:11)
[2022-05-01] MEDS: Acetaminophen 325 MG TABLET 975 MG PO (09:45)
[2022-05-01] MEDS: HYDROmorphone HCl 0.5 MG/0.5 ML SYRINGE IVPUSH (09:46)
[2022-05-01] MEDS: 0.9 % Sodium Chloride 1,000 ML 999 ML IV ×2 (09:50→11:04)
--- NOTE | 2022-05-01 09:52 | PC.NURSE ---
Pt c/o of pain in all 4 abdominal quad, nausua and lightheadedness, 20 g iv inserted in the right AC. Pt medicated, in cat scan. aware.
--- NOTE | 2022-05-01 09:56 | PC.NURSE ---
Pt is A A& O X 4, lung sounds are clear, respiration is even and non nonlabored, bowel sound present in all 4 quad, soft and tender. Pt stated he had a hx of similar pain, c/o of nausea, yellow emesis and lightheadedness.
[2022-05-01] MEDS: iohexoL 350 MG/ML 100 ML INFUS..BTL IV (10:11)
--- NOTE | 2022-05-01 11:07 | PC.NURSE ---
Second L of fluid hanged, pt grandfather at bedside. Aware of plan of care. Awaiting cat scan results.
[2022-05-01 13:05] VITALS: BP 150/78; PULSE 45; RESP 12; TEMP 36.8; O2SAT 100
[2022-05-01] MEDS: Magnesium Hydrox/Alum Hydrox 30 ML ORAL.SUSP PO (13:10)
== END 2022-05-01 13:19 | disposition home or self-care (01) ==
PROVIDERS: Emergency Provider Emergency Medicine Emergency Medical Services
DX: R11.2 Nausea with vomiting, unspecified (principal); R10.9 Unspecified abdominal pain; R53.1 Weakness; F17.200 Nicotine dependence, unspecified, uncomplicated; Z20.822 Contact with and (suspected) exposure to COVID-19; Z71.6 Tobacco abuse counseling; Z79.899 Other long term (current) drug therapy
CPT/HCPCS: 36415; 74177; 80053; 85027; 87635; 96361; 96374; 96375; 96376; 99284; J1170; J2405; Q9967

== ENCOUNTER 2023-04-09 02:11 | Emergency (ER) | payer OTHER, SELFPAY ==
[2023-04-09 02:15] VITALS: BP 151/87; PULSE 109; O2SAT 100
[2023-04-09 02:19] VITALS: BP 141/96; PULSE 61; RESP 15; TEMP 36.8; O2SAT 97; BMI 25.6
--- NOTE | 2023-04-09 03:35 | ECG_ITS ---
Test Reason : LOW HR Blood Pressure : / mmHG Vent. Rate : 043 BPM Atrial Rate : 043 BPM P-R Int : 168 ms QRS Dur : 104 ms QT Int : 520 ms P-R-T Axes : 035 075 067 degrees QTc Int : 439 ms Marked sinus bradycardia Nonspecific ST and T wave abnormality Abnormal ECG No previous ECGs available Referred By: Generic ED Physician Electronically Signed By:MONIE SOLORZANO
--- NOTE | 2023-04-09 03:35 | PC.NURSE ---
EDT notified cupola charger of pt bradying down to the 40s, EKG ordered
--- NOTE | 2023-04-09 04:09 | ED.GENADULT ---
HPI - General Adult General Chief complaint: ETOH/Substance Use Stated complaint: drug use Time Seen by Provider: 04/09/23 03:50 History of Present Illness HPI narrative: Patient is a 22-year-old male presents today after using heroin and cocaine. Patient was given 3 doses of 4 mg Narcan before he woke up. Had nausea vomiting. Sent in for further evaluation. Has no complaint at this point. Related Data Previous Rx's Medication Instructions Recorded amoxicillin 875 mg-potassium 1 tab PO Q12H 7 days #14 tabs 02/17/21 clavulanate 125 mg tablet (Augmentin) prednisone 20 mg tablet 40 mg (2 x 20 mg) PO DAILY 7 days 05/05/21 #14 tabs cyclobenzaprine 10 mg tablet 10 mg PO TID #10 tabs 06/09/21 naproxen 500 mg tablet (Naprosyn) 500 mg PO BID #20 tabs 06/09/21 diazepam 10 mg tablet (Valium) 10 mg PO TID PRN muscle spasm #14 06/13/21 tabs ibuprofen 800 mg tablet 800 mg PO Q8H PRN pain #14 tabs 06/13/21 oxycodone-acetaminophen 5 mg-325 1 tab PO Q6H PRN pain #10 tabs 06/13/21 mg tablet (Percocet) acetaminophen 500 mg capsule 1,000 mg (2 x 500 mg) PO QID PRN 06/23/21 fever or pain #14 caps cephalexin 500 mg capsule 500 mg PO Q6H 10 days #40 caps 06/23/21 fluconazole 150 mg tablet 150 mg PO Q3D 2 doses #2 tabs 03/30/22 (Diflucan) prednisone 20 mg tablet 20 mg PO DAILY 12 days #26 tabs 03/30/22 ondansetron 4 mg disintegrating 4 mg PO TID PRN nausea and 05/01/22 tablet vomiting 5 days #10 tabs Allergies Allergy/AdvReac Type Severity Reaction Status Date / Time No Known Allergies Allergy Verified 04/09/23 02:19 [No Known Allergies*] Review of Systems Review of Systems: Positive shortness of breath after using heroin Yes all other systems are reviewed and are negative PMFSH Past Medical History Medical History Ruptured eardrum Surgical History Hx of tonsillectomy Social History Social History Alcohol intake: never Patient Tobacco Use Status: Current everyday Tobacco user Advance Directives: No Advance Directives Information Provided: No Physical Exam ED Vital Signs: Vital Signs - 24 hr 04/09/23 02:19 Temperature 98.3 F Pulse Rate 61 Respiratory Rate 15 Blood Pressure 141/96 H Pulse Oximetry 97 Oxygen Delivery Method Room Air BMI result Body Mass Index 25.6 Appearance: Alert. Oriented X3. No acute distress. Eyes: Pupils equal, round and reactive to light. ENT: Pharynx normal. Neck: Normal inspection. Neck supple. No lymph nodes noted. No crepitus CVS: Normal heart rate and rhythm. Pulses normal. Normal S1 and S2 Respiratory: No respiratory distress. Breath sounds normal. No Wheezing. No rales Abdomen: Soft and nontender. No rigidity. No distention. good BS x4 Skin: Skin warm and dry. Normal skin color. Normal skin turgor. Extremities: No lower extremity edema. Neurovascular intact to all extremities. No Lacerations. No Rash Neuro: Oriented X 3. No motor deficit. No sensory deficit. Moving all extermities. No slurred speech Medications Administered Generic Name Dose Route Start Last Admin Trade Name Freq PRN Reason Stop Dose Admin Sodium Chloride 1,000 mls @ 999 mls/hr 04/09/23 04:15 04/09/23 04:27 Ns IV 04/09/23 05:15 999 mls/hr .Q1H1M MARILOU Administration Medical Decision Making Medical Decision Making [facility] Narrative: My interpretation patient's EKG showed a sinus pattern heart rate is 40 the SD QRS QTC within normal limits there is significant possible ST segment elevation and biphasic T-waves over the V2 and V3. Patient has no chest pain. Questions secondary to LVH. Will get 1 set of cardiac enzymes. Will monitor carefully. Baseline labs ordered. Patient has no chest pain. One set of cardiac enzyme was negative. Monitor in the emergency department. Will discharge home. In stable condition. Differential Diagnosis Differential Diagnoses: The differential diagnosis associated with the presentation includes Myocardial infarction, polysubstance abuse Lab Data [facility] Lab Attestation statement: I reviewed the patient's lab results. 04/09/23 04:27 04/09/23 04:27 Labs: Lab Results 04/09/23 Range/Units 04:27 WBC 14.6 H (4.8-10.8) X10*3/uL RBC 5.23 (4.60-5.80) X10*6/uL Hgb 14.5 (14.0-18.0) g/dl Hct 43.0 (42.0-52.0) % MCV 82.2 (80.0-98.0) fL MCH 27.7 (27.0-33.0) pg MCHC 33.7 (31.0-36.0) g/dl RDW 13.3 (11.0-16.0) % Plt Count 337 (160-400) X10*3/uL MPV 9.3 L (9.4-12.4) fL Immature Gran % (Auto) 0.5 H (0.0-0.4) % Neut % (Auto) 74.3 H (45-73) % Lymph % (Auto) 14.7 L (20-40) % [place] % (Auto) 9.5 (2-11) % Eos % (Auto) 0.5 (0-4) % Baso % (Auto) 0.5 (0-2) % Lymph # (Auto) 2.1 (1.2-4.9) X10*3/uL [place] # (Auto) 1.4 H (0.1-1.2) X10*3/uL Eos # (Auto) 0.1 (0.0-0.4) X10*3/uL Baso # (Auto) 0.1 (0.0-0.2) X10*3/uL Abs Immat Gran (auto) 0.08 H (0.00-0.03) X10*3/uL Absolute Neuts (auto) 10.8 H (2.0-8.3) x10*3/uL Absolute Nucleated RBC 0.000 (0.0-0.012) X10*3/uL Nucleated RBC % (auto) 0.0 (0.0-0.2) /100WBC Sodium 138 (135-145) mmol/L Potassium 3.7 (3.3-5.1) mmol/L Chloride 102 (96-108) mmol/L Carbon Dioxide 27 (22-29) mmol/L Anion Gap 13 (12-20) BUN 15 (9-16) mg/dL Creatinine 0.86 (0.5-1.4) mg/dL Estim Creat Clear Calc 129.2 Estimated GFR > 60 Random Glucose 152 H (60-115) mg/dL Calcium 10.3 H D (8.4-10.2) mg/dL Total Bilirubin 1.1 H (0.0-1.0) mg/dL Direct Bilirubin 0.4 (0.0-0.5) mg/dL AST 39 H (5-37) U/L ALT 27 (0-40) U/L Alkaline Phosphatase 93 (39-117) U/L Troponin I High Sens < 2.7 (<3.5-35.0) ng/L Total Protein 7.2 (6.5-8.0) g/dL Albumin 4.7 (3.5-5.0) g/dL Independent Interpretation I performed an independent interpretation of an: EKG Interpretation: EKG shows a sinus pattern heart rate is 50 SD QRS QTC within normal limits there is biphasic T-waves over the anterior leads. External Record Review External record reviewed: Prior outpatient labs Chronic Conditions Polysubstance abuse Discharge Plan Discharge Clinical Impression: Polysubstance (including opioids) dependence, daily use Patient Disposition: Home, Self-Care Instructions: Opioid Use Disorder (ED), Cocaine Abuse (ED), Cannabis Abuse (ED) Prescriptions: No Action amoxicillin-pot clavulanate [Augmentin] 875-125 mg tablet 1 tab PO Q12H 7 Days Qty: 14 0RF cyclobenzaprine 10 mg tablet 10 mg PO TID Qty: 10 0RF naproxen [Naprosyn] 500 mg tablet 500 mg PO BID Qty: 20 0RF cephalexin 500 mg capsule 500 mg PO Q6H 10 Days Qty: 40 0RF acetaminophen 500 mg capsule 1,000 mg PO QID PRN (Reason: fever or pain) Qty: 14 0RF prednisone 20 mg tablet 20 mg PO DAILY 12 Days Qty: 26 0RF Rx Instructions: Take 3 tablets for 5 days THEN; Take 2 tablets for 4 days THEN; Take 1 tablet for 3 days fluconazole [Diflucan] 150 mg tablet 150 mg PO Q3D Qty: 2 0RF prednisone 20 mg tablet 40 mg PO DAILY 7 Days Qty: 14 0RF ibuprofen 800 mg tablet 800 mg PO Q8H PRN (Reason: pain) Qty: 14 0RF oxycodone-acetaminophen [Percocet] 5-325 mg tablet 1 tab PO Q6H PRN (Reason: pain) Qty: 10 0RF diazepam [Valium] 10 mg tablet 10 mg PO TID PRN (Reason: muscle spasm) Qty: 14 0RF ondansetron 4 mg tablet,disintegrating 4 mg PO TID PRN (Reason: nausea and vomiting) 5 Days Qty: 10 0RF Referrals: Physician,Unknown J [Primary Care Provider] - 2 days
[2023-04-09] MEDS: 0.9 % Sodium Chloride 1,000 ML 999 ML IV (04:27)
[2023-04-09 04:32] LABS: MANUAL DIFF FLAG NO
[2023-04-09 04:34] LABS: Basophils Absolute Auto 0.1 X10*3/uL (0.0-0.2); Basophils Percent Auto 0.5 % (0-2); Eosinophils Absolute Auto 0.1 X10*3/uL (0.0-0.4); Eosinophils Percent Auto 0.5 % (0-4); Hemoglobin 14.5 g/dl (14.0-18.0); Imm Gran Abs Auto 0.08 X10*3/uL (0.00-0.03); Imm Gran Pct Auto 0.5 % (0.0-0.4); Lymphocytes Absolute Auto 2.1 X10*3/uL (1.2-4.9); Lymphocytes Percent Auto 14.7 % (20-40); Mean Corpuscular HGB Conc 33.7 g/dl (31.0-36.0); Mean Corpuscular Hemoglobin 27.7 pg (27.0-33.0); Mean Corpuscular Volume 82.2 fL (80.0-98.0); Mean Platelet Volume 9.3 fL (9.4-12.4); Monocytes Absolute Auto 1.4 X10*3/uL (0.1-1.2); Monocytes Percent Auto 9.5 % (2-11); Neutrophils Absolute Auto 10.8 x10*3/uL (2.0-8.3); Neutrophils Percent Auto 74.3 % (45-73); Platelet Count 337 X10*3/uL (160-400); Red Blood Count 5.23 X10*6/uL (4.60-5.80); Red Cell Distribution Width 13.3 % (11.0-16.0); White Blood Count 14.6 X10*3/uL (4.8-10.8)
[2023-04-09 04:55] LABS: Troponin-I High Sensitivity < 2.7 ng/L (<3.5-35.0)
[2023-04-09 04:59] LABS: Alanine Aminotransferase 27 U/L (0-40); Albumin Level 4.7 g/dL (3.5-5.0); Alkaline Phosphatase 93 U/L (39-117); Anion Gap 13 (12-20); Aspartate Amino Transferase 39 U/L (5-37); Bilirubin Direct 0.4 mg/dL (0.0-0.5); Bilirubin Total 1.1 mg/dL (0.0-1.0); Blood Urea Nitrogen 15 mg/dL (9-16); Calcium 10.3 mg/dL (8.4-10.2); Carbon Dioxide 27 mmol/L (22-29); Chloride 102 mmol/L (96-108); Creatinine Clr Calc Pharmacy 129.2; Estimated Glomerular Filt Rate > 60; Glucose Random 152 mg/dL (60-115); Potassium 3.7 mmol/L (3.3-5.1); Sodium 138 mmol/L (135-145); Total Protein 7.2 g/dL (6.5-8.0)
[2023-04-09 05:00] VITALS: BP 115/71; PULSE 61; RESP 16; O2SAT 98
== END 2023-04-09 06:35 | disposition home or self-care (01) ==
PROVIDERS: Emergency Provider Emergency Medicine Emergency Medical Services
DX: F11.29 Opioid dependence with unspecified opioid-induced disorder (principal); R11.2 Nausea with vomiting, unspecified; R00.1 Bradycardia, unspecified; F14.10 Cocaine abuse, uncomplicated; F12.10 Cannabis abuse, uncomplicated; F17.200 Nicotine dependence, unspecified, uncomplicated; Z79.899 Other long term (current) drug therapy; Z71.6 Tobacco abuse counseling
CPT/HCPCS: 36415; 80048; 80076; 84484; 85025; 93005; 99284; 99285